=== PATIENT | female | born 1945 | race Caucasian/White ===

== ENCOUNTER 2016-11-14 14:27 | Emergency (ER) | payer MEDICARE ==
[2016-11-14] MEDS ORDERED: Aspirin Low Dose CHEW TAB* 81 MG PO ONE (14:53)
[2016-11-14 15:07] LABS: Hematocrit 36 % (35-47); Hemoglobin 11.7 g/dl (12.0-16.0); Mean Corpuscular HGB Conc 33 g/dl (31-36); Mean Corpuscular Hemoglobin 26 pg (27-31); Mean Corpuscular Volume 79 fL (80-97); Mean Platelet Volume 8 um3 (7.4-10.4); Red Blood Count 4.51 10^6/ul (4.0-5.4); Red Cell Distribution Width 17 % (10.5-15); White Blood Count 6.6 10^3/ul (3.5-10.8)
[2016-11-14 15:22] LABS: Albumin 4.4 g/dL (3.2-5.2); BUN/Creatinine Ratio 10.8 (8-20); Calcium 9.6 mg/dL (8.6-10.3); EGFR African American 69.1 (>60); EGFR Non-African American 53.7 (>60); Globulin 3.3 g/dL (2-4); Magnesium 2.3 mg/dL (1.9-2.7); Potassium 3.4 mmol/L (3.5-5.0); Total Protein 7.7 g/dL (6.4-8.9)
--- NOTE | 2016-11-14 15:35 | RAD ---
Indication: Chest pain and tightness. Arrhythmia. Comparison: None. Technique: Upright AP 1500 hours Report: Elevated lung volumes. No pulmonary infiltrate, focal pulmonary lesion, pleural effusion, pneumothorax. The heart, pulmonary vasculature, and mediastinal contours are unremarkable. IMPRESSION: Elevated lung volumes suggest potential obstructive lung disease. No acute cardiopulmonary process evident.
[2016-11-14 15:56] LABS: T4 7.99 g/dL (6.09-12.23)
[2016-11-14 15:57] LABS: TSH (Thyroid Stimulating Horm) 2.12 mcIU/mL (0.34-5.60)
[2016-11-14] MEDS ORDERED: Potassium Chlor TAB* 20 MEQ TAB.ER PO ONE (16:33)
[2016-11-14] MEDS ORDERED: Ketorolac INJ* 30 MG/ML 1 ML VIAL IV PUSH ONE (16:33)
[2016-11-14 17:04] VITALS: BP 129/79
--- NOTE | 2016-11-15 14:42 | ED ---
Jules Krueger Rebecca, scribed for Steven Sahu MD on 11/14/16 at 1450 . HPI Chest Pain - HPI Summary HPI Summary: Pt is a 71 y/o F who presents to ED c/o CP. Pain began suddenly 2 days ago and has been constant since onset, worsening today. Pain is in the left anterior region and does not radiate. Pain is currently mild, ranked 2/10 and characterized as tightness. Sx aggravated and alleviated by nothing. Additionally c/o mild generalized weakness. Denies nausea, diaphoresis, SOB, dizziness, cough, edema. Denies abd pain, V/D. Quality Director is Dr. Fournier, who she sees for chest pain. Had a cardiac workup which revealed an "erratic heart beat." Takes OTC vitamins and Levothyroxine. - History of Current Complaint Chief Complaint: EDChestPainROMI Time Seen by Provider: 11/14/16 14:42 Hx Obtained From: Patient Onset/Duration: Started Days Ago - 2 days, Still Present Timing: Constant Initial Severity: Mild Current Severity: Mild Pain Intensity: 2 Pain Scale Used: 0-10 Numeric Chest Pain Location: Left Anterior Chest Pain Radiates: No Character: Tightness Aggravating Factor(s): Nothing Alleviating Factor(s): Nothing Associated Signs and Symptoms: Positive: Weakness - generalized. Negative: Dizziness, Shortness of Breath, Diaphoresis, Nausea, Cough, Abdominal Pain, Vomiting, Edema - Allergy/Home Medications Allergies/Adverse Reactions: Allergies Allergy/AdvReac Type Severity Reaction Status Date / Time Gabapentin [From Neurontin] Allergy Bleeding Verified 11/14/16 14:30 PMH/Surg Hx/FS Hx/Imm Hx Endocrine/Hematology History: Reports: Hx Thyroid Disease Denies: Hx Diabetes Cardiovascular History: Denies: Hx Coronary Artery Disease, Hx Hypertension Infectious Disease History: No Infectious Disease History: Denies: Traveled Outside the [place] in Last 30 Days - Family History Known Family History: Positive: Other - Colon CA, Kidney CA - Social History Alcohol Use: Occasionally Hx Substance Use: No Substance Use Type: Reports: None Hx Tobacco Use: No Smoking Status (MU): Never Smoked Tobacco Review of Systems Positive: Other - Mild generalized weakness. Negative: Skin Diaphoresis Positive: Chest Pain Negative: Shortness Of Breath, Cough Negative: Abdominal Pain, Vomiting, Diarrhea, Nausea Negative: Edema Neurological: Other - Denies dizziness All Other Systems Reviewed And Are Negative: Yes Physical Exam Triage Information Reviewed: Yes Vital Signs On Initial Exam: Initial Vitals Temp Pulse Resp BP Pulse Ox 97.6 F 72 16 133/77 99 11/14/16 14:30 11/14/16 14:30 11/14/16 14:30 11/14/16 14:30 11/14/16 14:30 Vital Signs Reviewed: Yes Appearance: Positive: Well-Appearing, No Pain Distress Skin: Positive: Warm, Skin Color Reflects Adequate Perfusion, Dry Head/Face: Positive: Normal Head/Face Inspection Eyes: Positive: EOMI, ANGELINA ENT: Positive: Normal ENT inspection Neck: Positive: Supple, Nontender Respiratory/Lung Sounds: Positive: Clear to Auscultation, Breath Sounds Present Cardiovascular: Positive: RRR, Pulses are Symmetrical in both Upper and Lower Extremities Musculoskeletal: Positive: Normal, Strength/ROM Intact Neurological: Positive: Normal, Sensory/Motor Intact, Alert, Oriented to Person Place, Time Psychiatric: Positive: Normal, Affect/Mood Appropriate Diagnostics - Vital Signs Vital Signs Temp Pulse Resp BP Pulse Ox 11/14/16 14:30 97.6 F 72 16 133/77 99 - Laboratory Lab Results: Lab Results 11/14/16 11/14/16 11/14/16 Range/Units 14:55 14:55 14:55 WBC 6.6 (3.5-10.8) 10^3/ul RBC 4.51 (4.0-5.4) 10^6/ul Hgb 11.7 L (12.0-16.0) g/dl Hct 36 (35-47) % MCV 79 L (80-97) fL MCH 26 L (27-31) pg MCHC 33 (31-36) g/dl RDW 17 H (10.5-15) % Plt Count 248 (150-450) 10^3/ul MPV 8 (7.4-10.4) um3 Neut % (Auto) 71.9 (38-83) % Lymph % (Auto) 19.8 L (25-47) % [place] % (Auto) 6.4 (1-9) % Eos % (Auto) 0.9 (0-6) % Baso % (Auto) 1.0 (0-2) % Absolute Neuts (auto) 4.8 (1.5-7.7) 10^3/ul Absolute Lymphs (auto) 1.3 (1.0-4.8) 10^3/ul Absolute Monos (auto) 0.4 (0-0.8) 10^3/ul Absolute Eos (auto) 0.1 (0-0.6) 10^3/ul Absolute Basos (auto) 0.1 (0-0.2) 10^3/ul Absolute Nucleated RBC 0 10^3/ul Nucleated RBC % 0 D-Dimer, Quantitative (Less Than 230) ng/mL Sodium 137 (133-145) mmol/L Potassium 3.4 L (3.5-5.0) mmol/L Chloride 104 (101-111) mmol/L Carbon Dioxide 26 (22-32) mmol/L Anion Gap 7 (2-11) mmol/L BUN 11 (6-24) mg/dL Creatinine 1.02 H (0.51-0.95) mg/dL Est GFR ( Amer) 69.1 (>60) Est GFR (Non-Af Amer) 53.7 (>60) BUN/Creatinine Ratio 10.8 (8-20) Glucose 91 (70-100) mg/dL Lactic Acid 1.0 (0.5-2.0) mmol/L Calcium 9.6 (8.6-10.3) mg/dL Magnesium 2.3 (1.9-2.7) mg/dL Total Bilirubin 1.00 (0.2-1.0) mg/dL AST 18 (13-39) U/L ALT 15 (7-52) U/L Alkaline Phosphatase 63 (34-104) U/L Total Creatine Kinase 148 (10-223) U/L CK-MB (CK-2) 6.1 (0.6-6.3) ng/mL Troponin I 0.00 (<0.04) ng/mL B-Natriuretic Peptide ( - 100) pg/mL Total Protein 7.7 (6.4-8.9) g/dL Albumin 4.4 (3.2-5.2) g/dL Globulin 3.3 (2-4) g/dL Albumin/Globulin Ratio 1.3 (1-3) TSH 2.12 (0.34-5.60) mcIU/mL Thyroxine (T4) 7.99 (6.09-12.23) g/dL 11/14/16 11/14/16 11/14/16 Range/Units 14:55 14:55 17:40 WBC (3.5-10.8) 10^3/ul RBC (4.0-5.4) 10^6/ul Hgb (12.0-16.0) g/dl Hct (35-47) % MCV (80-97) fL MCH (27-31) pg MCHC (31-36) g/dl RDW (10.5-15) % Plt Count (150-450) 10^3/ul MPV (7.4-10.4) um3 Neut % (Auto) (38-83) % Lymph % (Auto) (25-47) % [place] % (Auto) (1-9) % Eos % (Auto) (0-6) % Baso % (Auto) (0-2) % Absolute Neuts (auto) (1.5-7.7) 10^3/ul Absolute Lymphs (auto) (1.0-4.8) 10^3/ul Absolute Monos (auto) (0-0.8) 10^3/ul Absolute Eos (auto) (0-0.6) 10^3/ul Absolute Basos (auto) (0-0.2) 10^3/ul Absolute Nucleated RBC 10^3/ul Nucleated RBC % D-Dimer, Quantitative < 200 (Less Than 230) ng/mL Sodium (133-145) mmol/L Potassium (3.5-5.0) mmol/L Chloride (101-111) mmol/L Carbon Dioxide (22-32) mmol/L Anion Gap (2-11) mmol/L BUN (6-24) mg/dL Creatinine (0.51-0.95) mg/dL Est GFR ( Amer) (>60) Est GFR (Non-Af Amer) (>60) BUN/Creatinine Ratio (8-20) Glucose (70-100) mg/dL Lactic Acid (0.5-2.0) mmol/L Calcium (8.6-10.3) mg/dL Magnesium (1.9-2.7) mg/dL Total Bilirubin (0.2-1.0) mg/dL AST (13-39) U/L ALT (7-52) U/L Alkaline Phosphatase (34-104) U/L Total Creatine Kinase (10-223) U/L CK-MB (CK-2) (0.6-6.3) ng/mL Troponin I 0.00 (<0.04) ng/mL B-Natriuretic Peptide 51 ( - 100) pg/mL Total Protein (6.4-8.9) g/dL Albumin (3.2-5.2) g/dL Globulin (2-4) g/dL Albumin/Globulin Ratio (1-3) TSH (0.34-5.60) mcIU/mL Thyroxine (T4) (6.09-12.23) g/dL Result Diagrams: 11/14/16 14:55 11/14/16 14:55 Lab Statement: Any lab studies that have been ordered have been reviewed, and results considered in the medical decision making process. - Radiology CXR Radiology Interpretation Completed By: Radiologist - Elevated lung volumes suggest potential obstructive lung disease. No acute cardiopulmonary process evident. - EKG 1431 Cardiac Rate: NL - 73 bpm EKG Rhythm: Sinus Rhythm ST Segment: Normal - No ST elevations Ectopy: PVCs - occasional Chest Pain Course/Dx - Course Assessment/Plan: Pt is a 71 y/o F who presents to ED c/o CP. Pain began suddenly 2 days ago and has been constant since onset, worsening today. Pain is in the left anterior region and does not radiate. Pain is currently mild, ranked 2/10 and characterized as tightness. Sx aggravated and alleviated by nothing. Additionally c/o mild generalized weakness. Denies nausea, diaphoresis , SOB, dizziness, cough, edema. Denies abd pain, V/D. Quality Director is Dr. Fournier, who she sees for chest pain. Had a cardiac workup which revealed an "erratic heart beat." Takes OTC vitamins and Levothyroxine. Blood work found to be within normal limits, D-dimer < 200, potassium of 3.4 for which she was given potassium chloride. The first troponin was 0.00 and the 2nd troponin 4 hours later was also 0.00. CXR shows no acute cardiopulmonary disease and the EKG shows a normal sinus rhythm without ST elevations and occasional PVCs. In the ED course, the pt was given potassium chloride. I offered the pt pain medications and Toradol and she declined. Reports she does not have any pain any longer. Seeing as pt does not have any other comorbidities, we are D/C pt to the home with a follow up with PCP. She was instructed to return to ED if she develops any other CP, SOB, N/V or diaphoresis. She understands and agrees. Pt is hemodynamically stable and AxOx3. I discussed all the findings and test results with the patient. Patient was instructed to return to the emergency room immediately if any of the symptoms return or worsens. Plan of care was discussed with the patient and understands and agrees. All questions were answered at patient satisfaction. There were no further complaints or concerns. Lung exam before discharge: CTA B/L. Good air exchange. No wheezing or crackles heard. CVS: S1 and S2 present. No murmurs appreciated. Patient is alert and oriented x 3. Patient is hemodynamically stable. Patient will be discharged home with follow up fingerprint clerk in the next 2-3 days - Chest Pain Differential Diagnosis/HQI/PQRI: Acute LA, ACS, Angina, Chest Wall, GI Disease, Lower Respiratory Infection - Diagnoses Provider Diagnoses: Atypical chest pain Discharge - Discharge Plan Condition: Stable Disposition: HOME Patient Education Materials: Chest Pain (ED) Referrals: Attila Davenport MD [Primary Care Provider] - 3 Days (Follow up with your primary care physician in the next 3 days. ) Additional Instructions: Return to the ED for any other chest pain or if you experience nausea, vomiting , shortness of breath or sweating. The documentation as recorded by the Jules bland Rebecca accurately reflects the service I personally performed and the decisions made by me, Steven Sahu MD.
== END 2016-11-14 18:19 | disposition home or self-care (01) ==
LOC: ED 14:27
DX: R07.89 Other chest pain (principal)
CPT/HCPCS: 36415; 71010; 80053; 82550; 82553; 83605; 83735; 83880; 84436; 84443; 84484; 85025; 85379; 93005; 96374; 99283; A9270-GY; J1885